=== PATIENT | female | born 2000 | race Caucasian/White ===

== ENCOUNTER 2022-05-07 12:41 | Outpatient (CLI) | payer OTHER, SELFPAY ==
[2022-05-07 15:09] LABS: Cholesterol* 233 mg/dL (90-199); HDL Cholesterol* 73 mg/dL (>=50); LDL Cholesterol Calculated 142 mg/dL (<100); Triglycerides* 91 mg/dL (40-149)
[2022-05-07 18:43] LABS: Chlamydia DNA Amplified* NOT DETECTED (No Detected); GC DNA Amplified* NOT DETECTED (No Detected)
== END 2022-05-07 12:42 | disposition home or self-care (01) ==
PROVIDERS: PCP Family Medicine; Visit Provider Registered Nurse
DX: Z01.419 Encounter for gynecological examination (general) (routine) without abnormal findings (principal); Z13.1 Encounter for screening for diabetes mellitus; Z13.6 Encounter for screening for cardiovascular disorders; Z11.3 Encounter for screening for infections with a predominantly sexual mode of transmission
CPT/HCPCS: 80061; 87491; 87591

== ENCOUNTER 2022-08-09 15:25 | Outpatient (CLI) | payer OTHER, SELFPAY ==
--- NOTE | 2022-08-09 16:00 | CRLHL7_ITS ---
For Patients: As a result of the Century Cures Act, medical imaging exams and procedure reports are released immediately into your electronic medical record. You may view this report before your referring provider. If you have questions, please contact your health care provider. CLINICAL HISTORY: Missing IUD strings TECHNIQUE: 2D sheets scale and color Doppler images were acquired of the pelvis using a transvaginal approach. FINDINGS: On transvaginal imaging, the myometrium has a normal uniform echotexture. Uterus measures 6.6 x 3.2 x 4.2 cm. The endometrial lining appears normal and measures 4 mm in thickness. Intrauterine device in good position within the endometrial canal. The left ovary measures 4.8 x 4.1 x 4.5 cm in size and the right ovary measures 3.6 x 1.8 x 1.9 cm. The ovaries demonstrate normal arterial and venous blood flow on color Doppler analysis. There are no suspicious fluid collections within the cul-de-sac. Hemorrhagic left ovarian cyst measuring 4.2 x 3.7 x 4.2 cm. IMPRESSION: IUD in good position within the endometrial canal. Dictated by Michael Ivan MD @ 08/09/2022 4:13:24 PM (Electronically Signed)
== END 2022-08-09 15:26 | disposition home or self-care (01) ==
LOC: US 15:25
PROVIDERS: PCP Family Medicine; Visit Provider Registered Nurse
DX: T83.32XA Displacement of intrauterine contraceptive device, initial encounter (principal)
CPT/HCPCS: 76830; 93976